=== PATIENT | male | born 1965 | race Caucasian/White ===

== ENCOUNTER 2019-01-17 17:35 | Emergency (ER) | payer OTHER ==
[~2019-01-17] VITALS: Ht 175.3 cm; Wt 86.2 kg
[2019-01-17 17:51] LABS: URINE BILIRUBIN NEGATIVE (Negative); URINE BLOOD 3+ (Negative); URINE CLARITY CLEAR; URINE COLOR YELLOW; URINE GLUCOSE-RANDOM NEGATIVE (Negative); URINE KETONES NEGATIVE (Negative); URINE LEUKOCYTES-REFLEX NEGATIVE (Negative); URINE NITRITE-REFLEX NEGATIVE (Negative); URINE PROTEIN NEGATIVE (Negative); URINE SPECIFIC GRAVITY <= 1.005 (1.005-1.030); URINE UROBILINOGEN 0.2 E.U./dl (0.2-1.0)
[2019-01-17] MEDS ORDERED: CIPROFLOXACIN500 M1 PO (17:56)
[2019-01-17 18:01] LABS: SQUAMOUS 0-3 Few /LPF (0-3)
[2019-01-17 18:02] LABS: URINE WBC-REFLEX 0-5 Rare /HPF (0-5)
[2019-01-17 18:03] LABS: CRYSTALS None Seen /LPF (None Seen); HYALINE CASTS 4-10 Moderate /LPF (None Seen); MUCUS 0-3 Light strn/LPF (None Seen)
[2019-01-17 18:22] VITALS: BP 117/63
== END 2019-01-17 18:18 | disposition home or self-care (01) ==
LOC: M.ERS 17:35
PROVIDERS: Family Medicine
DX: N41.0 Acute prostatitis (principal)

== ENCOUNTER 2019-09-29 21:49 | Emergency (ER) | payer OTHER ==
[~2019-09-29] VITALS: Ht 177.8 cm; Wt 104.3 kg
[~2019-09-29 21:49] MED LIST: CIPROFLOXACIN500 M1 PO
[2019-09-29 23:22] VITALS: BP 122/88
== END 2019-09-29 23:23 | disposition home or self-care (01) ==
LOC: M.ERS 21:49
DX: I10 Essential (primary) hypertension (principal)

== ENCOUNTER 2020-02-03 20:51 | Inpatient (IN) | payer MEDICAID ==
[~2020-02-03] VITALS: Ht 177.8 cm; Wt 106.6 kg
[2020-02-03 20:56] VITALS: BP 140/92
[2020-02-03] MEDS ORDERED: NORVASC 2.5 MG2.5 M1 PO (21:05)
[2020-02-03] MEDS ORDERED: LISINOPRIL30 MG PO (21:06)
[2020-02-03] MEDS ORDERED: TOVIAZ4 M1 PO (21:07)
[2020-02-03] MEDS ORDERED: COMPAZINE10 MG PO (21:07)
[2020-02-03 21:55] LABS: HEMATOCRIT 39.7 % (42.0-52.0); HEMOGLOBIN 13.4 gm/dL (14.0-18.0); MCH 30.8 pg (26.0-34.0); MCHC 33.8 g/dL (28.0-37.0); MCV 91.3 fL (80.0-100.0); MPV 7.1 fl. (7.2-11.1); NUCLEATED RBCS 0 /100WBC; PLATELET COUNT* 259 thou/uL (150-400); RBC 4.34 mil/uL (4.50-6.00); RDW-CV 14.4 % (10.5-14.5); WBC 12.8 thou/uL (4.0-11.0)
[2020-02-03 22:04] LABS: CALCIUM 8.4 mg/dL (8.5-10.1); CREATININE 0.8 mg/dL (0.6-1.3); POTASSIUM 3.9 mmol/L (3.5-5.1)
[2020-02-03 22:08] LABS: ALBUMIN 3.8 g/dL (3.4-5.0); MAGNESIUM 1.9 mg/dL (1.8-2.4); TOTAL BILIRUBIN 0.1 mg/dL (<0.1-1.0); TOTAL PROTEIN 7.3 g/dL (6.4-8.2)
[2020-02-03 22:35] LABS: ABSOLUTE EOSINOPHILS 0.1 thou/uL (0.0-0.7); ABSOLUTE LYMPHOCYTES 3.8 thou/uL (0.8-5.3); ABSOLUTE MONOCYTES 1.4 thou/uL (0.0-1.2); ABSOLUTE NEUTROPHILS 7.4 thou/uL (1.6-8.1)
[2020-02-03 22:37] LABS: PLATELET ESTIMATE ADEQUATE
[2020-02-04] VITALS (18 sets, daily range): BP systolic 92–158; BP diastolic 41–107
[2020-02-04 05:24] LABS: HEMATOCRIT 34.7 % (42.0-52.0); HEMOGLOBIN 11.8 gm/dL (14.0-18.0); MCH 31.4 pg (26.0-34.0); MCHC 34.1 g/dL (28.0-37.0); MCV 92.2 fL (80.0-100.0); MPV 6.6 fl. (7.2-11.1); RBC 3.77 mil/uL (4.50-6.00); RDW-CV 14.3 % (10.5-14.5)
[2020-02-04 05:42] LABS: INR 1.1; PROTIME 10.8 Seconds (9.20-11.50)
[2020-02-04 05:46] LABS: CREATININE 0.8 mg/dL (0.6-1.3); MAGNESIUM 1.9 mg/dL (1.8-2.4); PHOSPHORUS* 4.3 mg/dL (2.5-4.9); POTASSIUM 4.2 mmol/L (3.5-5.1); TOTAL BILIRUBIN 0.1 mg/dL (<0.1-1.0); TOTAL PROTEIN 5.9 g/dL (6.4-8.2)
[2020-02-04 05:56] LABS: CALCIUM 7.1 mg/dL (8.5-10.1)
--- NOTE | 2020-02-04 09:22 | EKG ---
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
[2020-02-04 11:34] LABS: AMP/METHAMP Negative (Negative); BARBITURATES Negative (Negative); BENZODIAZEPINES Negative (Negative); COCAINE Negative (Negative); METHADONE Negative (Negative); OPIATES Negative (Negative); PCP Negative (Negative); THC Negative (Negative)
[2020-02-04 11:45] LABS: URINE BILIRUBIN NEGATIVE (Negative); URINE BLOOD TRACE (Negative); URINE CLARITY CLEAR; URINE COLOR YELLOW; URINE GLUCOSE-RANDOM NEGATIVE (Negative); URINE KETONES NEGATIVE (Negative); URINE LEUKOCYTES NEGATIVE (Negative); URINE NITRITE NEGATIVE (Negative); URINE PROTEIN NEGATIVE (Negative); URINE SPECIFIC GRAVITY >= 1.030 (1.005-1.030); URINE UROBILINOGEN 0.2 E.U./dl (0.2-1.0)
[2020-02-05 04:30] VITALS: BP 131/86
[2020-02-05 04:58] LABS: PROTIME 10.7 Seconds (9.20-11.50)
[2020-02-05 05:08] LABS: CALCIUM 7.6 mg/dL (8.5-10.1); CREATININE 0.9 mg/dL (0.6-1.3); MAGNESIUM 1.6 mg/dL (1.8-2.4); PHOSPHORUS* 3.1 mg/dL (2.5-4.9); POTASSIUM 3.6 mmol/L (3.5-5.1)
[2020-02-05 08:00] VITALS: BP 131/86
[2020-02-05] MEDS ORDERED: SUPER THERAVIT1 EACH PO (09:13)
[2020-02-05 09:43] VITALS: BP 131/86
== END 2020-02-05 10:09 | disposition home or self-care (01) | DRG 897 ==
LOC: M.ERS 20:51 → M.2W 02-04 00:17 → M.TBA-ER 02-04 00:17 → M.ICU 02-04 00:17 → M.2W 02-04 18:15
PROVIDERS: Emergency Medicine; Family Medicine; ADMIT Internal Medicine
DX: F10.929 Alcohol use, unspecified with intoxication, unspecified (principal); I10 Essential (primary) hypertension; Z85.51 Personal history of malignant neoplasm of bladder; Z87.891 Personal history of nicotine dependence; E83.51 Hypocalcemia; E53.8 Deficiency of other specified B group vitamins; C67.9 Malignant neoplasm of bladder, unspecified

== ENCOUNTER 2020-04-12 09:09 | Emergency (ER) | payer MEDICAID ==
[~2020-04-12] VITALS: Ht 177.8 cm; Wt 95.3 kg
[~2020-04-12 09:09] MED LIST changes: +COMPAZINE10 MG PO; +LISINOPRIL30 MG PO; +NORVASC 2.5 MG2.5 M1 PO; +SUPER THERAVIT1 EACH PO; +TOVIAZ4 M1 PO
[2020-04-12 09:28] LABS: ABSOLUTE BASOPHILS 0.1 thou/uL (0.0-0.2); BASOPHILS 0.7 %; NUCLEATED RBCS 0 /100WBC
[2020-04-12 09:30] LABS: ABSOLUTE EOSINOPHILS 0.1 thou/uL (0.0-0.7); ABSOLUTE MONOCYTES 0.5 thou/uL (0.0-1.2); ABSOLUTE NEUTROPHILS 5.6 thou/uL (1.6-8.1); HEMATOCRIT 39.4 % (42.0-52.0); HEMOGLOBIN 13.3 gm/dL (14.0-18.0); LYMPHOCYTES 24.1 %; MCHC 33.9 g/dL (28.0-37.0); MCV 97.4 fL (80.0-100.0); MONOCYTES 6.1 %; MPV 7.7 fl. (7.2-11.1); PLATELET COUNT* 239 thou/uL (150-400); POLYS 68.1 %; RBC 4.05 mil/uL (4.50-6.00); RDW-CV 15.9 % (10.5-14.5); WBC 8.2 thou/uL (4.0-11.0)
[2020-04-12 09:42] LABS: CALCIUM 8.1 mg/dL (8.5-10.1); CREATININE 1.1 mg/dL (0.6-1.3); POTASSIUM 4.2 mmol/L (3.5-5.1)
[2020-04-12 09:47] LABS: ALBUMIN 3.9 g/dL (3.4-5.0); TOTAL BILIRUBIN 0.3 mg/dL (<0.1-1.0); TOTAL PROTEIN 7.2 g/dL (6.4-8.2)
[2020-04-12 09:50] LABS: ALCOHOL 365 mg/dL (<10); SALICYLATE < 2.8 mg/dL (2.8-20.0)
[2020-04-12 09:55] LABS: ACETAMINOPHEN < 2 ug/mL (10-30)
[2020-04-12 14:57] LABS: URINE BILIRUBIN NEGATIVE (Negative); URINE BLOOD NEGATIVE (Negative); URINE CLARITY CLEAR; URINE COLOR YELLOW; URINE GLUCOSE-RANDOM NEGATIVE (Negative); URINE KETONES NEGATIVE (Negative); URINE LEUKOCYTES-REFLEX NEGATIVE (Negative); URINE NITRITE-REFLEX NEGATIVE (Negative); URINE PROTEIN NEGATIVE (Negative); URINE UROBILINOGEN 0.2 E.U./dl (0.2-1.0)
[2020-04-12 15:05] LABS: AMP/METHAMP Negative (Negative); BARBITURATES Negative (Negative); BENZODIAZEPINES Negative (Negative); COCAINE Negative (Negative); METHADONE Negative (Negative); OPIATES Negative (Negative); PCP Negative (Negative); THC Negative (Negative)
[2020-04-12 15:10] VITALS: BP 107/76
== END 2020-04-12 15:38 | disposition home or self-care (01) ==
LOC: M.ERS 09:09
PROVIDERS: Family Medicine
DX: F10.129 Alcohol abuse with intoxication, unspecified (principal); Y90.8 Blood alcohol level of 240 mg/100 ml or more; I10 Essential (primary) hypertension; Z85.51 Personal history of malignant neoplasm of bladder; Z79.899 Other long term (current) drug therapy